=== PATIENT | male | born 1980 | race Caucasian/White ===

== ENCOUNTER 2016-12-21 00:31 | Emergency (ER) | payer OTHER ==
--- NOTE | 2016-12-21 01:51 | ED NURSING NOTES ---
Clinical Report - Nurses [address] [facility] [place] [address] 12/21/2016 0:33 Patient: STEVE KAPLAN TRIAGE Triage time 00:37. Acuity: LEVEL 2. Chief Complaint: CHEST PAIN and LEFT ARM PAIN (AND NUMBNESS). --00:44 Sharlene Kidd R.N. 00:37 12/21/16. BP: 185/107 taken on the left arm, while lying. HR: 75 (regular and normal rate). RR: 18 (regular and unlabored). O2 saturation: 99% on room air. Temp: 97.4 F. Pain level now: 010. --00:44 Sharlene Kidd R.N. Weight: 90.7 kg stated. Height/Length: 66 inches Per Patient. BMI: 32.3. --00:44 Sharlene Kidd R.N. Medications Atenolol Oral (Tablet 50 mg) 1 tablet, daily. --00:40 Sharlene Kidd R.N. Allergies No Known Drug Allergy. --00:39 Sharlene Kidd R.N. History Arrived by private vehicle. Historian: patient. Accompanied by family. Patient has a primary care physician. Primary physician (Dennis in [place]). This started today. Onset was abrupt. Symptoms are intermittent (at about 1500). He has had nausea. PAST MEDICAL HX: Hypertension. Immunizations: up-to-date. SOCIAL HX: Never smoker. Occasional alcohol use. Last drink was 2 weeks ago. No drug use. SELF HARM ASSESSMENT: A self harm assessment was performed. The patient answered "no" to the question "Have you recently felt down, depressed, or hopeless?", "Have you noticed less interest or pleasure in doing things?", "Do you have thoughts of harming or killing yourself?", "Are you here because you tried to hurt yourself?", "Have you ever tried to hurt yourself before today?", "Have you recently had thoughts about harming or killing others?" and "Do you have any dangerous items in your possession?". --00:44 Sharlene Kidd R.N. PROBLEMS: Hypertension. --00:40 Sharlene Kidd R.N. ADDITIONAL SURGERIES: no known surgeries. Interventions ID band on patient. --00:44 Sharlene Kidd R.N. PHYSICAL ASSESSMENT Ambulatory to room. GENERAL / NEURO / PSYCH: Alert. Oriented X 4. Appears anxious. HEENT: Mucous membranes are pink. RESPIRATORY: Respirations not labored. Chest nontender. Breath sounds within normal limits. CVS: Normal sinus rhythm noted. Heart sounds within normal limits. Pulses within normal limits. Capillary refill less than 2 seconds. GI / : Abdomen soft and nontender. EXTREMITIES: No lower extremity edema. SKIN: Skin is warm and dry. Normal skin turgor. Skin is non-tender. --00:46 Sharlene Kidd R.N. NURSING PROGRESS NOTES air sampling and monitoring, pulse oximeter and NIBP monitor placed on patient; bus driver/monitor- Lead II. Patient gowned. Reassurance given to the patient and patient's family. Two patient identifiers checked. Call light placed in reach of patient. Side rails up x 1. Bed placed in lowest position. Brakes of bed on. --00:47 Sharlene Kidd R.N. Patient ready for evaluation- chart flagged. --00:47 Sharlene Kidd R.N. 00:43. EKG was performed by a tech. --00:49 Lucretia Malik ER Tech1 00:45 12/21/2016 Site #1 started via IV in the right antecubital space with an 20g angiocath, with aseptic technique and good blood return; one attempt. Blood drawn: rainbow set. Labeled in the presence of the patient and sent to the lab. Saline lock flushed with 10 mL saline. --00:50 Sarah Rdoriguez 01:15 12/21/16. BP: 142/98 taken on the left arm, while lying. HR: 67 (regular and normal rate). RR: 18 (regular and unlabored). O2 saturation: 98% on room air. Temp: deferred. Pain level now: 08/27. --01:16 Sharlene Kidd R.N. DISPOSITION / DISCHARGE 02:03 12/21/2016 Site #1 removed upon discharge. Catheter intact. Manual pressure and bandage applied. --02:08 Sharlene Kidd R.N. Condition at departure: improved. No learning barriers present. Discharge instructions provided and reviewed with the patient and spouse. Reviewed medication(s) side effects, precautions, dosing and course information. Prescription(s) given to the patient. Activity restrictions (rest) reviewed. Work note given. Patient and spouse verbalized understanding. Written instructions provided in Persian. The patient was discharged home and accompanied by spouse. He left the Emergency Department ambulatory and via private vehicle. Spouse driving. --02:08 Sharlene Kidd R.N. 02:06 12/21/16. BP: 135/88 taken on the left arm, while lying. HR: 63 (regular and normal rate). RR: 18 (regular and unlabored). O2 saturation: 98% on room air. Temp: deferred. Pain level now: 0/10. --02:08 Sharlene Kidd R.N. Locked/Released at 12/21/2016 2:08 by Sharlene Kidd R.N.
--- NOTE | 2016-12-21 01:51 | ED CLINICAL REPORT ---
Clinical Report - Physicians/Mid Levels [facility] [address] [place] [address] 12/21/2016 0:33 Patient: STEVE KAPLAN Time Seen: 01:03 Dec 21 2016. Arrived- By private vehicle. Historian- patient. CPT: ER phys charges level 4 plus (#371914). EKG interpretation (#[id number]). HISTORY OF PRESENT ILLNESS Chief Complaint: CHEST PAIN. It is described as numbness and it is described as located in the left chest area and left shoulder and arm. Modifying factors. Not worsened by anything. Not relieved by anything. This started yesterday noon and is now gone. Onset during while driving. No nausea, vomiting or diaphoresis. (Numbness around mouth and fingertips. Now better since resting in ER.). He has had difficulty breathing. Similar symptoms previously: None. Recent medical care: Not recently seen/assessed. REVIEW OF SYSTEMS No fever, chills, cough, pedal edema or calf pain. Multiple stressors and not sleeping well. PAST HISTORY Hypertension. No history of coronary artery disease, heart disease, hyperlipidemia or diabetes mellitus. Additional Surgeries: no known surgeries. Medications: Atenolol Oral (Tablet 50 mg) 1 tablet, daily. Allergies: No Known Drug Allergy. SOCIAL HISTORY Never smoker. Occasional alcohol use. No drug use. FAMILY HISTORY History of heart disease in grandparent. No family history of premature onset heart disease. ADDITIONAL NOTES The nursing notes have been reviewed. PHYSICAL EXAM Vital Signs: 12/21/2016 00:37 BP: 185/107. HR: 75. RR: 18. O2 saturation: 99%. Temp: 97.4 F. Pain level now: 0/10. Appearance: Alert. Anxious. Patient in moderate distress. Eyes: Pupils equal, round and reactive to light. Eyes normal inspection. ENT: Ears normal. Nose normal. Pharynx normal. Neck: Normal inspection. Neck supple. CVS: Normal heart rate and rhythm. Heart sounds normal. Pulses normal. No cardiac murmur. Respiratory: No respiratory distress. Breath sounds normal. Chest nontender. Abdomen: Soft and nontender. Back: Normal external inspection. Skin: Skin warm. Normal skin color. No rash. Extremities: Extremities exhibit normal ROM. No lower extremity edema. Neuro: Oriented X 3. No motor deficit. No sensory deficit. Reflexes normal. LABS, X-RAYS, AND EKG EKG: Normal EKG. Chest X-ray: Normal Chest X-Ray. Laboratory Tests: CBC w Diff: (CEDRICK: 12/21/2016 00:35) ( [facility] 12/21/2016 00:52) Final results Test Result Flag Units (Reference) WHITE BLOOD COUNT 11.8 H K/uL (4.5-11.5) RED BLOOD COUNT 4.96 M/uL (4.50-5.90) HEMOGLOBIN 15.0 gm/dL (13.5-17.5) HEMATOCRIT 43.4 % (41.0-53.0) MEAN CELL VOLUME 87 fL (80-100) MEAN CORPUSCULAR HGB 30 pg (26-34) MEAN CORPUSCULAR HGB CONC 35 g/dL (31-37) RED CELL DISTRIBUTION WIDTH 12.9 % (11.6-14.8) PLATELET COUNT 244 K/uL (150-400) NEUTROPHIL % 43.9 L % (50-75) LYMPH % 46.0 H % (25-40) MONO % 7.9 % (3-14) EOSINOPHIL % 1.6 % (0-4) BASOPHIL % 0.6 % (0-2) TSH: (CEDRICK: 12/21/2016 00:35) ( [facility] 12/21/2016 01:41) Final results Test Result Flag Units (Reference) THYROID STIMULATING HORMONE 6.029 H uIU/mL (0.34-3.74) CHEM 13 PANEL: (CEDRICK: 12/21/2016 00:35) ( [facility] 12/21/2016 01:38) Final results Test Result Flag Units (Reference) GLUCOSE 125 H mg/dL (70-110) BUN 16 mg/dL (7-18) CREATININE 1.0 mg/dL (0.6-1.3) Estimated GFR >60 mL/min Estimated GFR- >60 mL/min Note: Persistent reduction over 3 months in eGFR<60 mL/min/1.73 m2 defines CKD. Patients with eGFR values>=60 mL/min/1.73 m2 may also have CKD if evidence ofpersistent proteinuria. Additional information may be foundat www.kidney.org. SODIUM 143 mmol/L (136-145) POTASSIUM 3.4 L mmol/L (3.5-5.1) CHLORIDE 104 mmol/L (98-107) CARBON DIOXIDE 28 mmol/L (21-32) CALCIUM 8.5 mg/dL (8.5-10.1) TOTAL PROTEIN 7.8 g/dL (6.4-8.2) ALBUMIN 4.1 g/dL (3.3-5.0) BILIRUBIN, TOTAL 0.4 mg/dL (0.0-1.0) ALKALINE PHOSPHATASE 69 U/L (46-116) AST (SGOT) 18 U/L (15-37) ALT (SGPT) 48 U/L (12-78) CPK 134 U/L (24-260) MAGNESIUM 2.2 mg/dL (1.8-2.4) TROPONIN I <0.05 L ng/mL (0.00-1.5) TROPONIN REFERENCE RANGE:<0.1 NEGATIVE0.1-1.5 INDETERMINANT>1.5 POSITIVE . PROGRESS AND PROCEDURES Course of Care: Pt has symptoms most consistent with panic attacks and hyperventilation. Patient/family counseled. Disposition: Discharged. Condition: stable. CLINICAL IMPRESSION Anxiety reaction with hyperventilation. INSTRUCTIONS No strenuous activity. Rest. Warnings: Further evaluation is necessary. GENERAL WARNINGS: Return or contact your physician immediately if your condition worsens or changes unexpectedly, if not improving as expected, or if other problems arise. Your Current Medications: CONTINUE TAKING THE FOLLOWING MEDICATIONS: Atenolol Oral : Tablet 50 mg, 1 tablet daily. Prescription Medications: Alprazolam 0.25 mg: take 1-2 orally every 4 hours as needed for anxiety. Dispense fifteen (15). No refill. Follow-up: Follow up with your doctor in five days. Call for an appointment. Understanding of the discharge instructions verbalized by patient. (Electronically signed by Julian Munoz MD 12/22/2016 0:09)
--- NOTE | 2016-12-21 01:51 | ED ORDER SUMMARY ---
..... Patient: STEVE KAPLAN OrderSheet [facility] VisitID: [id number] [address] [place] [address] 36y, M Registration Date/Time: 12/21/2016 ORDER SHEET Weight: 90.7 kg (stated) Allergies: No Known Drug Allergy GENERAL ORDERS: Hand Cloth Folder (Continuous) (CP) (00:45 12/21/2016 EBonham per protocol) (0:46 AMcQuoid ER Tech1) Cardiac Panel Stat (00:12/21/2016 EBonham per protocol) (Ack 0:46 AMcQuoid ER Tech1) (0:47 AMcQuoid ER Tech1) UA-Culture if indicated Urgent (00:12/21/2016 EBonham per protocol) (Ack 0:46 AMcQuoid ER Tech1) EKG - ER Stat (00:12/21/2016 EBonham per protocol) (0:46 AMcQuoid ER Tech1) Chest 2V Urgent (01:12/21/2016 Gerald MON) (1:16 CBoma R.N.) Urine Drug Screen Urgent (01:12/21/2016 Gerald MON) (Ack 1:22 AMcQuoid ER Tech1) TSH Urgent (01:12/21/2016 Gerald MON) (1:19 AMcQuoid ER Tech1) (1:20 CBoma R.N.) MEDICATION ORDERS: IV FLUIDS: IV Saline Lock (:12/21/2016 EBonham per protocol) (0:50 HSoule) ORDER SHEET NOTES: [Electronically signed by Sharlene Kidd R.N. (02:12/21/2016)] [Electronically signed by Julian Munoz MD (00:09 12/22/2016)] [Electronically locked/signed by Sharlene Kidd R.N. (02:12/21/2016)]
--- NOTE | 2016-12-21 01:51 | ED ORDER SUMMARY ---
..... Patient: STEVE KAPLAN OrderSheet [facility] VisitID: [id number] [address] [place] [address] 36y, M Registration Date/Time: 12/21/2016 ORDER SHEET Weight: 90.7 kg (stated) Allergies: No Known Drug Allergy GENERAL ORDERS: Education Program Coordinator (Continuous) (CP) (00:45 12/21/2016 EBonham per protocol) (0:46 AMcQuoid ER Tech1) Cardiac Panel Stat (00:12/21/2016 EBonham per protocol) (Ack 0:46 AMcQuoid ER Tech1) (0:47 AMcQuoid ER Tech1) UA-Culture if indicated Urgent (00:12/21/2016 EBonham per protocol) (Ack 0:46 AMcQuoid ER Tech1) EKG - ER Stat (00:12/21/2016 EBonham per protocol) (0:46 AMcQuoid ER Tech1) Chest 2V Urgent (01:12/21/2016 Gerald MON) (1:16 CBoma R.N.) Urine Drug Screen Urgent (01:12/21/2016 Gerald MON) (Ack 1:22 AMcQuoid ER Tech1) TSH Urgent (01:12/21/2016 Gerald MON) (1:19 AMcQuoid ER Tech1) (1:20 CBoma R.N.) MEDICATION ORDERS: IV FLUIDS: IV Saline Lock (:12/21/2016 EBonham per protocol) (0:50 HSoule) ORDER SHEET NOTES: [Electronically signed by Sharlene Kidd R.N. (02:12/21/2016)] [Electronically signed by Julian Munoz MD (00:09 12/22/2016)] [Electronically locked/signed by Sharlene Kidd R.N. (02:12/21/2016)]
--- NOTE | 2016-12-21 01:51 | ED NURSING NOTES ---
Clinical Report - Nurses [address] [address] [place] [address] 12/21/2016 0:33 Patient: STEVE KAPLAN TRIAGE Triage time 00:37. Acuity: LEVEL 2. Chief Complaint: CHEST PAIN and LEFT ARM PAIN (AND NUMBNESS). --00:44 Sharlene Kidd R.N. 00:37 12/21/16. BP: 185/107 taken on the left arm, while lying. HR: 75 (regular and normal rate). RR: 18 (regular and unlabored). O2 saturation: 99% on room air. Temp: 97.4 F. Pain level now: 010. --00:44 Sharlene Kidd R.N. Weight: 90.7 kg stated. Height/Length: 66 inches Per Patient. BMI: 32.3. --00:44 Sharlene Kidd R.N. Medications Atenolol Oral (Tablet 50 mg) 1 tablet, daily. --00:40 Sharlene Kidd R.N. Allergies No Known Drug Allergy. --00:39 Sharlene Kidd R.N. History Arrived by private vehicle. Historian: patient. Accompanied by family. Patient has a primary care physician. Primary physician (Dennis in [place]). This started today. Onset was abrupt. Symptoms are intermittent (at about 1500). He has had nausea. PAST MEDICAL HX: Hypertension. Immunizations: up-to-date. SOCIAL HX: Never smoker. Occasional alcohol use. Last drink was 2 weeks ago. No drug use. SELF HARM ASSESSMENT: A self harm assessment was performed. The patient answered "no" to the question "Have you recently felt down, depressed, or hopeless?", "Have you noticed less interest or pleasure in doing things?", "Do you have thoughts of harming or killing yourself?", "Are you here because you tried to hurt yourself?", "Have you ever tried to hurt yourself before today?", "Have you recently had thoughts about harming or killing others?" and "Do you have any dangerous items in your possession?". --00:44 Sharlene Kidd R.N. PROBLEMS: Hypertension. --00:40 Sharlene Kidd R.N. ADDITIONAL SURGERIES: no known surgeries. Interventions ID band on patient. --00:44 Sharlene Kidd R.N. PHYSICAL ASSESSMENT Ambulatory to room. GENERAL / NEURO / PSYCH: Alert. Oriented X 4. Appears anxious. HEENT: Mucous membranes are pink. RESPIRATORY: Respirations not labored. Chest nontender. Breath sounds within normal limits. CVS: Normal sinus rhythm noted. Heart sounds within normal limits. Pulses within normal limits. Capillary refill less than 2 seconds. GI / : Abdomen soft and nontender. EXTREMITIES: No lower extremity edema. SKIN: Skin is warm and dry. Normal skin turgor. Skin is non-tender. --00:46 Sharlene Kidd R.N. NURSING PROGRESS NOTES front desk monitor, pulse oximeter and NIBP monitor placed on patient; alarm security or surveillance monitor- Lead II. Patient gowned. Reassurance given to the patient and patient's family. Two patient identifiers checked. Call light placed in reach of patient. Side rails up x 1. Bed placed in lowest position. Brakes of bed on. --00:47 Sharlene Kidd R.N. Patient ready for evaluation- chart flagged. --00:47 Sharlene Kidd R.N. 00:43. EKG was performed by a tech. --00:49 Lucretia Malik ER Tech1 00:45 12/21/2016 Site #1 started via IV in the right antecubital space with an 20g angiocath, with aseptic technique and good blood return; one attempt. Blood drawn: rainbow set. Labeled in the presence of the patient and sent to the lab. Saline lock flushed with 10 mL saline. --00:50 Sarah Rodriguez 01:15 12/21/16. BP: 142/98 taken on the left arm, while lying. HR: 67 (regular and normal rate). RR: 18 (regular and unlabored). O2 saturation: 98% on room air. Temp: deferred. Pain level now: 08/27. --01:16 Sharlene Kidd R.N. DISPOSITION / DISCHARGE 02:03 12/21/2016 Site #1 removed upon discharge. Catheter intact. Manual pressure and bandage applied. --02:08 Sharlene Kidd R.N. Condition at departure: improved. No learning barriers present. Discharge instructions provided and reviewed with the patient and spouse. Reviewed medication(s) side effects, precautions, dosing and course information. Prescription(s) given to the patient. Activity restrictions (rest) reviewed. Work note given. Patient and spouse verbalized understanding. Written instructions provided in Irish. The patient was discharged home and accompanied by spouse. He left the Emergency Department ambulatory and via private vehicle. Spouse driving. --02:08 Sharlene Kidd R.N. 02:06 12/21/16. BP: 135/88 taken on the left arm, while lying. HR: 63 (regular and normal rate). RR: 18 (regular and unlabored). O2 saturation: 98% on room air. Temp: deferred. Pain level now: 0/10. --02:08 Sharlene Kidd R.N. Locked/Released at 12/21/2016 2:08 by Sharlene Kidd R.N.
--- NOTE | 2016-12-21 01:51 | ED CLINICAL REPORT ---
Clinical Report - Physicians/Mid Levels [facility] [address] [place] [address] 12/21/2016 0:33 Patient: STEVE KAPLAN Time Seen: 01:03 Dec 21 2016. Arrived- By private vehicle. Historian- patient. CPT: ER phys charges level 4 plus (#[id number]). EKG interpretation (#[id number]). HISTORY OF PRESENT ILLNESS Chief Complaint: CHEST PAIN. It is described as numbness and it is described as located in the left chest area and left shoulder and arm. Modifying factors. Not worsened by anything. Not relieved by anything. This started yesterday noon and is now gone. Onset during while driving. No nausea, vomiting or diaphoresis. (Numbness around mouth and fingertips. Now better since resting in ER.). He has had difficulty breathing. Similar symptoms previously: None. Recent medical care: Not recently seen/assessed. REVIEW OF SYSTEMS No fever, chills, cough, pedal edema or calf pain. Multiple stressors and not sleeping well. PAST HISTORY Hypertension. No history of coronary artery disease, heart disease, hyperlipidemia or diabetes mellitus. Additional Surgeries: no known surgeries. Medications: Atenolol Oral (Tablet 50 mg) 1 tablet, daily. Allergies: No Known Drug Allergy. SOCIAL HISTORY Never smoker. Occasional alcohol use. No drug use. FAMILY HISTORY History of heart disease in grandparent. No family history of premature onset heart disease. ADDITIONAL NOTES The nursing notes have been reviewed. PHYSICAL EXAM Vital Signs: 12/21/2016 00:37 BP: 185/107. HR: 75. RR: 18. O2 saturation: 99%. Temp: 97.4 F. Pain level now: 0/10. Appearance: Alert. Anxious. Patient in moderate distress. Eyes: Pupils equal, round and reactive to light. Eyes normal inspection. ENT: Ears normal. Nose normal. Pharynx normal. Neck: Normal inspection. Neck supple. CVS: Normal heart rate and rhythm. Heart sounds normal. Pulses normal. No cardiac murmur. Respiratory: No respiratory distress. Breath sounds normal. Chest nontender. Abdomen: Soft and nontender. Back: Normal external inspection. Skin: Skin warm. Normal skin color. No rash. Extremities: Extremities exhibit normal ROM. No lower extremity edema. Neuro: Oriented X 3. No motor deficit. No sensory deficit. Reflexes normal. LABS, X-RAYS, AND EKG EKG: Normal EKG. Chest X-ray: Normal Chest X-Ray. Laboratory Tests: CBC w Diff: (CEDRICK: 12/21/2016 00:35) ( [facility] 12/21/2016 00:52) Final results Test Result Flag Units (Reference) WHITE BLOOD COUNT 11.8 H K/uL (4.5-11.5) RED BLOOD COUNT 4.96 M/uL (4.50-5.90) HEMOGLOBIN 15.0 gm/dL (13.5-17.5) HEMATOCRIT 43.4 % (41.0-53.0) MEAN CELL VOLUME 87 fL (80-100) MEAN CORPUSCULAR HGB 30 pg (26-34) MEAN CORPUSCULAR HGB CONC 35 g/dL (31-37) RED CELL DISTRIBUTION WIDTH 12.9 % (11.6-14.8) PLATELET COUNT 244 K/uL (150-400) NEUTROPHIL % 43.9 L % (50-75) LYMPH % 46.0 H % (25-40) MONO % 7.9 % (3-14) EOSINOPHIL % 1.6 % (0-4) BASOPHIL % 0.6 % (0-2) TSH: (CEDRICK: 12/21/2016 00:35) ( [facility] 12/21/2016 01:41) Final results Test Result Flag Units (Reference) THYROID STIMULATING HORMONE 6.029 H uIU/mL (0.34-3.74) CHEM 13 PANEL: (CEDRICK: 12/21/2016 00:35) ( [facility] 12/21/2016 01:38) Final results Test Result Flag Units (Reference) GLUCOSE 125 H mg/dL (70-110) BUN 16 mg/dL (7-18) CREATININE 1.0 mg/dL (0.6-1.3) Estimated GFR >60 mL/min Estimated GFR- >60 mL/min Note: Persistent reduction over 3 months in eGFR<60 mL/min/1.73 m2 defines CKD. Patients with eGFR values>=60 mL/min/1.73 m2 may also have CKD if evidence ofpersistent proteinuria. Additional information may be foundat www.kidney.org. SODIUM 143 mmol/L (136-145) POTASSIUM 3.4 L mmol/L (3.5-5.1) CHLORIDE 104 mmol/L (98-107) CARBON DIOXIDE 28 mmol/L (21-32) CALCIUM 8.5 mg/dL (8.5-10.1) TOTAL PROTEIN 7.8 g/dL (6.4-8.2) ALBUMIN 4.1 g/dL (3.3-5.0) BILIRUBIN, TOTAL 0.4 mg/dL (0.0-1.0) ALKALINE PHOSPHATASE 69 U/L (46-116) AST (SGOT) 18 U/L (15-37) ALT (SGPT) 48 U/L (12-78) CPK 134 U/L (24-260) MAGNESIUM 2.2 mg/dL (1.8-2.4) TROPONIN I <0.05 L ng/mL (0.00-1.5) TROPONIN REFERENCE RANGE:<0.1 NEGATIVE0.1-1.5 INDETERMINANT>1.5 POSITIVE . PROGRESS AND PROCEDURES Course of Care: Pt has symptoms most consistent with panic attacks and hyperventilation. Patient/family counseled. Disposition: Discharged. Condition: stable. CLINICAL IMPRESSION Anxiety reaction with hyperventilation. INSTRUCTIONS No strenuous activity. Rest. Warnings: Further evaluation is necessary. GENERAL WARNINGS: Return or contact your physician immediately if your condition worsens or changes unexpectedly, if not improving as expected, or if other problems arise. Your Current Medications: CONTINUE TAKING THE FOLLOWING MEDICATIONS: Atenolol Oral : Tablet 50 mg, 1 tablet daily. Prescription Medications: Alprazolam 0.25 mg: take 1-2 orally every 4 hours as needed for anxiety. Dispense fifteen (15). No refill. Follow-up: Follow up with your doctor in five days. Call for an appointment. Understanding of the discharge instructions verbalized by patient. (Electronically signed by Julian Munoz MD 12/22/2016 0:09)
--- NOTE | 2016-12-21 06:42 | DIAGNOSTIC IMAGING REPORT ---
PROCEDURE: XR CHEST 2 VIEW INDICATION: CHEST PAIN TECHNIQUE: PA and lateral view. COMPARISON: None. FINDINGS: Lungs are clear. Cardiovascular structures are normal. Bony thorax is unremarkable. IMPRESSION: 1. Negative chest.
--- NOTE | 2016-12-22 00:10 | ED MAR SUMMARY ---
..... Medication Administration Record [facility] [address] [place] [place], [place] [id number] Patient: JOVANY CRUZJULIO STEVE Visit ID: [id number] 36y, M Weight: 90.7 kg Height/Length: 66 in BMI: 32.3 ALLERGIES: No Known Drug Allergy
--- NOTE | 2016-12-22 00:10 | ED MAR SUMMARY ---
..... Medication Administration Record [facility] [address] [place], [place] [id number] Patient: JOVANY CRUZJULIO STEVE Visit ID: [id number] 36y, M Weight: 90.7 kg Height/Length: 66 in BMI: 32.3 ALLERGIES: No Known Drug Allergy
--- NOTE | 2016-12-22 00:10 | ED MED RECONCILIATION SUMMARY ---
Patient: JOVANY CRUZSTEVE KIM Medication Reconciliation Report [facility] VisitID: [id number] [address] [place] [address] 36y, M Registration Date/Time: 12/21/2016 Weight: 90.7 kg Height/Length: 66 in. BMI: 32.3 ALLERGIES: No Known Drug Allergy The patient's Home Medications are listed below: CONTINUE TAKING THE FOLLOWING MEDICATIONS: Atenolol Oral (50 mg) 1 tablet, daily The source(s) of the original Home Medication information: Not obtained. The following Medications were given to the patient in the Emergency Department: None. The following Medications were prescribed to the patient: Alprazolam 0.25 mg: take 1-2 orally every 4 hours as needed for anxiety. Dispense fifteen (15). No refill. -- Julian Munoz MD
--- NOTE | 2016-12-22 00:10 | ED DISCHARGE INSTRUCTIONS ---
Patient: STEVE KAPLAN General Instructions [facility] VisitID: [id number] [address] [place] [address] 36y, M Registration Date/Time: 12/21/2016 Anxiety reaction with hyperventilation. INSTRUCTIONS No strenuous activity. Rest. Warnings: Further evaluation is necessary. GENERAL WARNINGS: Return or contact your physician immediately if your condition worsens or changes unexpectedly, if not improving as expected, or if other problems arise. Your Current Medications: CONTINUE TAKING THE FOLLOWING MEDICATIONS: Atenolol Oral : Tablet 50 mg, 1 tablet daily. Prescription Medications: Alprazolam 0.25 mg: take 1-2 orally every 4 hours as needed for anxiety. Dispense fifteen (15). No refill. Follow-up: Follow up with your doctor in five days. Call for an appointment. Understanding of the discharge instructions verbalized by patient. ADDITIONAL INFORMATION Stress Reaction Anxiety is the feeling we all get when we think something bad might happen. It is a normal response to stress and usually causes only a mild reaction. When anxiety becomes more severe, emotions may interfere with daily life. In some cases, you may not even be aware of what it is youre anxious about! During an anxiety reaction, you may feel like you are helpless, nervous, depressed or irritable. Your body may show signs of anxiety in many ways. You may experience dry mouth, shakiness, dizziness, weakness, trouble breathing, chest pressure, headache, nausea, diarrhea, tiredness, inability to sleep or sexual problems. Home Care: 1) Try to locate the sources of stress in your life. They may not be obvious! These may include: -- Daily hassles of life which pile up (traffic jams, missed appointments, car troubles, etc.) -- Major life changes, both good (new baby, job promotion) and bad (loss of job, loss of loved one) -- Overload: feeling that you have too many responsibilities and can't take care of all of them at once -- Feeling helpless, feeling that your problems are beyond what youre able to solve 2) Notice how your body reacts to stress. Learn to listen to your body signals. This will help you take action before the stress becomes severe. 3) When you can, do something about the source of your stress. (Avoid hassles, limit the amount of change that happens in your life at one time and take a break when you feel overloaded). 4) Unfortunately, many stressful situations cannot be avoided. It is necessary to learn HOW TO MANAGE STRESS better. There are many proven methods that will reduce your anxiety. These include simple things like exercise, good nutrition and adequate rest. Also, there are certain techniques that are helpful: relaxation and breathing exercises, visualization, biofeedback and meditation. For more information about this, consult your doctor or go to a local bookstore and review the many books and tapes available on this subject. Follow Up If you feel that your anxiety is not responding to self-help measures, contact your doctor or make an appointment with a counselor. Get Prompt Medical Attention if any of the following occur: -- Your symptoms get worse -- Chest pain or trouble breathing -- Severe headache not relieved by rest and mild pain reliever -- Rapid or irregular heartbeat, fainting Panic Attack A panic attack is an extreme fear reaction that comes on for no apparent reason. Symptoms may include pounding or racing heartbeat, shortness of breath, dizziness, weakness and sweating. There is usually a fear that something terrible will happen or that you may . The attack may last a few minutes up to a few hours. Between attacks things will seem quite normal. This condition has a psychological cause and can be treated with the help of a therapist or psychiatrist. Medication is often used and can be very helpful for this problem. Home Care: Try to identify the sources of stress in your life. It may not be obvious! These may include: Daily hassles of life which pile up (traffic jams, missed appointments, car troubles, etc.). Major life changes, both good (new baby, job promotion) and bad (loss of job, loss of loved one). Overload: feeling that you have too many responsibilities and can't take care of everything at once. Helplessness: feeling like your problems are too much for you to handle. Notice how your body reacts to stress. Learn to listen to your body signals so that you can take action before the stress becomes severe. When possible, AVOID or REDUCE THE CAUSE OF STRESS. Avoid hassles, limit the amount of change that is happening in your life at one time or take a break when you feel overloaded. Unfortunately, many stressful situations cannot be avoided. Therefore, it is necessary to LEARN HOW TO MANAGE STRESS better. There are many proven methods that work and will reduce your anxiety. These include simple things like exercise, good nutrition and adequate rest. Also, there are certain techniques that are helpful: relaxation and breathing exercises, visualization, biofeedback, meditation or simply taking some time-out to clear your mind. For more information about this, consult your doctor or go to a local bookstore and review the many books and tapes available on this subject. Follow Up with your doctor or a therapist as advised. Get Prompt Medical Attention if any of the following occur: Worsening of your symptoms to the point of feeling [id number] A change in the type of pain: if it feels different, becomes more severe, lasts longer, or begins to spread into your shoulder, arm, neck, jaw or back Shortness of breath or increased pain with breathing Increasing feeling of weakness or dizziness Fainting Cough with dark colored sputum (phlegm) or blood Fever of 100.4F (38C) or higher, or as directed by your healthcare provider Swelling, pain or redness in one leg Hyperventilation Syndrome Hyperventilation Syndrome is a condition in which you lose control of your breathing. You may find yourself breathing too fast and/or too deep. This can be triggered by pain, anxiety and emotional stress. If hyperventilation continues for more than a few minutes, it can lead to a number of frightening symptoms, such as: Numbness and tingling of the hands, feet and face Clenching of the fingers or toes Dizziness Feeling like you cannot get enough air Chest pains Fainting or feeling like you are going to faint Once these symptoms begin, it is often hard to stop them because they lead to a cycle of more anxiety and more hyperventilation. It is important to understand that this is not a life-threatening condition and it will pass once you are able to relax. Relaxation and stress management methods can be learned and practiced in advance. These can help in the event of a future attack. Home Care: 1) Rest today until feeling back to normal. 2) If symptoms return: Sit or lie down. Remember that what is happening to you is temporary and will pass. Use the relaxation methods you have learned. It is no longer recommended to breathe into a paper bag. Follow Up with your doctor or as directed by our staff if symptoms recur. Get Prompt Medical Attention if any of the following occur: Increasing shortness of breath Fever of 100.0 F (38 C) or higher, or as directed by your healthcare provider Coughing up blood Chest pain that is made worse with each breath Redness, pain or swelling of the leg Ringing in your ears, Severe headache Weakness or fainting Alprazolam Oral tablet What is this medicine? ALPRAZOLAM (al PRAY miryam llamas) is a benzodiazepine. It is used to treat anxiety and panic attacks. How should I use this medicine? Take this medicine by mouth with a glass of water. Follow the directions on the prescription label. Take your medicine at regular intervals. Do not take it more often than directed. If you have been taking this medicine regularly for some time, do not suddenly stop taking it. You must gradually reduce the dose or you may get severe side effects. Ask your doctor or health managed care coordinator for advice. Even after you stop taking this medicine it can still affect your body for several days. Talk to your certified income tax preparer regarding the use of this medicine in children. Special care may be needed. What side effects may I notice from receiving this medicine? Side effects that you should report to your doctor or health managed care coordinator as soon as possible: allergic reactions like skin rash, itching or hives, swelling of the face, lips, or tongue confusion, forgetfulness depression difficulty sleeping difficulty speaking feeling faint or lightheaded, falls mood changes, excitability or aggressive behavior muscle cramps trouble passing urine or change in the amount of urine unusually weak or tired Side effects that usually do not require medical attention (report to your doctor or health managed care coordinator if they continue or are bothersome): change in sex drive or performance changes in appetite What may interact with this medicine? Do not take this medicine with any of the following medications: certain medicines for HIV infection or AIDS ketoconazole itraconazole This medicine may also interact with the following medications: control pills certain macrolide antibiotics like clarithromycin, erythromycin, troleandomycin cimetidine cyclosporine ergotamine grapefruit juice herbal or dietary supplements like kava kava, melatonin, dehydroepiandrosterone, DHEA, Lisa's Wort or valerian imatinib, [id number] isoniazid levodopa medicines for depression, anxiety, or psychotic disturbances prescription pain medicines rifampin, rifapentine, or rifabutin some medicines for blood pressure or heart problems some medicines for seizures like carbamazepine, oxcarbazepine, phenobarbital, phenytoin, primidone What if I miss a dose? If you miss a dose, take it as soon as you can. If it is almost time for your next dose, take only that dose. Do not take double or extra doses. Where should I keep my medicine? Keep out of the reach of children. This medicine can be abused. Keep your medicine in a safe place to protect it from theft. Do not share this medicine with anyone. Selling or giving away this medicine is dangerous and against the law. Store at room temperature between 20 and 25 degrees C (68 and 77 degrees F). Throw away any unused medicine after the expiration date. What should I tell my health care provider before I take this medicine? They need to know if you have any of these conditions: an alcohol or drug abuse problem bipolar disorder, depression, psychosis or other mental health conditions glaucoma kidney or liver disease lung or breathing disease myasthenia gravis Parkinson's disease porphyria seizures or a history of seizures suicidal thoughts an unusual or allergic reaction to alprazolam, other benzodiazepines, foods, dyes, or preservatives or trying to get breast-feeding What should I watch for while using this medicine? Visit your doctor or health managed care coordinator for regular checks on your progress. Your body can become dependent on this medicine. Ask your doctor or health managed care coordinator if you still need to take it. You may get drowsy or dizzy. Do not drive, use machinery, or do anything that needs mental alertness until you know how this medicine affects you. To reduce the risk of dizzy and fainting spells, do not stand or sit up quickly, especially if you are an older patient. Alcohol may increase dizziness and drowsiness. Avoid alcoholic drinks. Do not treat yourself for coughs, colds or allergies without asking your doctor or health managed care coordinator for advice. Some ingredients can increase possible side effects. You have been given the following additional information: Anxiety Reaction Panic Attack Hyperventilation Syndrome Alprazolam Oral tablet No strenuous activity. Rest. (Electronically signed by Julian Munoz MD 12/22/2016 0:09)
--- NOTE | 2016-12-22 00:10 | ED MED RECONCILIATION SUMMARY ---
Patient: JOVANY CRUZSTEVE KIM Medication Reconciliation Report [facility] VisitID: [id number] [address] [place] [address] 36y, M Registration Date/Time: 12/21/2016 Weight: 90.7 kg Height/Length: 66 in. BMI: 32.3 ALLERGIES: No Known Drug Allergy The patient's Home Medications are listed below: CONTINUE TAKING THE FOLLOWING MEDICATIONS: Atenolol Oral (50 mg) 1 tablet, daily The source(s) of the original Home Medication information: Not obtained. The following Medications were given to the patient in the Emergency Department: None. The following Medications were prescribed to the patient: Alprazolam 0.25 mg: take 1-2 orally every 4 hours as needed for anxiety. Dispense fifteen (15). No refill. -- Julian Munoz MD
== END 2016-12-21 02:03 | disposition home or self-care (01) ==
LOC: ED SRH 00:31 → EDBD 00:34 → ED SRH 00:34
DX: F41.1 Generalized anxiety disorder (principal); R06.4 Hyperventilation; I10 Essential (primary) hypertension; Z79.899 Other long term (current) drug therapy
CPT/HCPCS: 90004; 90100; 90616; 92610; 92720; 92760; 92761; 92762; 92763; 92764; 92765; 92766; 92767; 93140; 95059

== ENCOUNTER 2017-01-02 18:42 | Emergency (ER) | payer OTHER ==
--- NOTE | 2017-01-02 20:41 | DIAGNOSTIC IMAGING REPORT ---
PROCEDURE: XR CHEST 1 VIEW INDICATION: CHEST PAIN TECHNIQUE: Portable AP view 06:55 p.m. COMPARISON: Chest x-ray 12/21/2016. FINDINGS: Lungs are clear. Heart and mediastinum are normal. Thorax is normal. No significant interval change. IMPRESSION: 1. Negative chest.
--- NOTE | 2017-01-02 22:14 | ED ORDER SUMMARY ---
..... Patient: STEVE KAPLAN OrderSheet [facility] VisitID: [id number] [address] [place] [address] 36y, M Registration Date/Time: 01/02/2017 ORDER SHEET Weight: 89.8 kg (stated) Allergies: No Known Drug Allergy GENERAL ORDERS: Patient Financial Coordinator (Continuous) (18:50 01/02/2017 JSimbeck R.N. per protocol) (Ack 18:52 IJurca ER Tech1) (19:13 DDavis R.N.) Pulse oximeter (18:50 01/02/2017 JSimbeck R.N. per protocol) (Ack 18:52 IJurca ER Tech1) (19:13 DDavis R.N.) EKG - ER Stat (18:50 01/02/2017 JSimbeck R.N. per protocol) (Ack 18:52 IJurca ER Tech1) (19:09 RKaruga) Chest 1V Urgent (18:59 01/02/2017 HBivens A.R.N.P.) (Ack 19:01 IJurca ER Tech1) (19:13 DDavis R.N.) CBC w Diff Urgent (18:59 01/02/2017 HBivens A.R.N.P.) (Ack 19:01 IJurca ER Tech1) (19:13 DDavis R.N.) CMP Urgent (18:59 01/02/2017 HBivens A.R.N.P.) (Ack 19:01 IJurca ER Tech1) (19:13 DDavis R.N.) Troponin-I Urgent (18:59 01/02/2017 HBivens A.R.N.P.) (Ack 19:01 IJurca ER Tech1) (19:13 DDavis R.N.) CPK Urgent (18:59 01/02/2017 HBivens A.R.N.P.) (Ack 19:01 IJurca ER Tech1) (19:13 DDavis R.N.) Troponin-I Urgent (20:24 01/02/2017 HBivens A.R.N.P.) (Ack 20:25 CHagerty ER Moving Consultant) (21:25 DDavis R.N.) CPK Urgent (20:24 01/02/2017 HBivens A.R.N.P.) (Ack 20:25 CHagerty ER Moving Consultant) (21:25 DDavis R.N.) MEDICATION ORDERS: Aspirin PO 325 mg (Do not crush or chew, NOW) (18:59 01/02/2017 HBivens A.R.N.P.) (19:23 DDavis R.N.) NitroGLYCERIN SL 0.4 mg (x3 PRN Chest Pain) (18:59 01/02/2017 HBivens A.R.N.P.) (19:23 DDavis R.N.) IV FLUIDS: IV Saline Lock (18:59 01/02/2017 HBivens A.R.N.P.) (19:17 DDavis R.N.) ORDER SHEET NOTES: [Electronically signed by Renita LamR.N.P. (22:42 01/02/2017)] [Electronically signed by Jay Briceño R.N. (01:36 01/03/2017)] [Electronically locked/signed by Jay Briceño R.N. (01:36 01/03/2017)]
--- NOTE | 2017-01-02 22:14 | ED NURSING NOTES ---
Clinical Report - Nurses [facility] [address] [place] [address] 01/02/2017 18:42 Patient: STEVE KAPLAN TRIAGE Triage time 18:49. Acuity: LEVEL 3. Chief Complaint: CHEST PAIN and DISCOMFORT and (SOB, onset yesterday. left substernal and left shoulder adn left jaw pain.). SEPSIS SCREEN: Sepsis Screen. Negative (no infection suspected/documented). ASTER COMA SCORE: [place] Coma Scale: 15- eyes open spontaneously (4); best verbal response- oriented x 4 (5); best motor response- obeys commands (6). --18:59 Elfego Jung R.N. 18:49 01/02/17. BP: 152/92 (regular adult cuff) taken on the left arm, while lying. HR: 84. RR: 20. O2 saturation: 100% on room air. Temp: 98 F (oral). --18:59 Elfego Jung R.N. Weight: 89.8 kg stated. Height/Length: 66 inches Per Patient. BMI: 32. --18:58 Elfego Jung R.N. Medications Xanax Oral (stopped). --18:59 Elfego Jung R.N. Atenolol Oral (Tablet 50 mg) 1 tablet, daily. --18:59 Elfego Jung R.N. HydrOXYzine HCl Oral (Tablet 25 mg) 1 - 2, daily, anxiety. --19:00 Elfego Jung R.N. The following entry was struck and corrected by Elfego Jung R.N., 19:00 (01/02/17) Reason for correction - other(correction). <<STRICKEN ENTRY-- Xanax Oral. --18:59 Elfego Jung R.N. --END STRIKE>>. Allergies No Known Drug Allergy. --01:35 Jay Briceño R.N. 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 SOCIAL HX: Never smoker. No alcohol use or drug use. ABUSE ASSESSMENT: No report of abuse. --18:59 Elfego Jung R.N. PROBLEMS: Anxiety Reaction. Hypertension. --18:49 Elfego Jung R.N. Interventions ID band on patient. To treatment room. --18:59 Elfego Jung R.N. PHYSICAL ASSESSMENT Ambulatory to room. GENERAL / NEURO / PSYCH: Alert. Oriented X 4. Appears in pain and anxious. RESPIRATORY: Respirations not labored. Breath sounds within normal limits. CVS: Normal sinus rhythm noted. Heart sounds within normal limits. Capillary refill less than 2 seconds. GI / : Abdomen soft and nontender. EXTREMITIES: No lower extremity edema. SKIN: Skin is warm and dry. --19:17 Jay Briceño R.N. CVS: ( chest pain, radiates to left jaw and left shoulder). --19:17 Jay Briceño R.N. ( Patient states "I'm better. I'm just waiting for my spiderman stickers."). --21:43 Jay Briceoñ R.N. NURSING PROGRESS NOTES EKG time: (19:07). EKG was performed by a tech and shown to the ED physician. --19:09 Violetta Candelaria 19:05 01/02/2017 Site #1 started via IV in the right antecubital space with an 20g angiocath, with aseptic technique and good blood return; one attempt. Blood drawn: rainbow set. Labeled in the presence of the patient and sent to the lab. Saline lock flushed with 10 mL saline. --19:15 Jay Briceño R.N. ( Report received from Elfego HICKEY). --19:15 Jay Briceño R.N. 19:05 01/02/17. BP: 156/92. HR: 77. RR: 10. O2 saturation: 100% on room air. Additional comments: NSR. --19:16 Jay Briceño R.N. 19:19 01/02/2017 Aspirin PO Tablets 325 mg given. Allergies verified and confirmed 5 rights. --19:23 Jay Briceño R.N. 19:21 01/02/2017 Nitroglycerin SL Tablets 0.4 mg given. Allergies verified and confirmed 5 rights. --19:23 Jay Briceño R.N. 19:30 01/02/2017 Nitroglycerin SL Tablets 0.4 mg given. Allergies verified and confirmed 5 rights. (given at 1930). --19:35 Jay Briceño R.N. ( Patient reports no change in chest pain after nitroglycerin). --19:36 Jay Briceño R.N. ( I called lab and Mone in lab stated that she draw the patient's 2100 blood tests.). --21:26 Jay Briceño R.N. DISPOSITION / DISCHARGE 22:20 01/02/2017 Site #1 removed upon discharge. Catheter intact. Bandaid applied. --22:20 Lila Weiss Departure time: 22:21. Condition at departure: improved. No learning barriers present. Discharge instructions provided and reviewed with the patient. Patient verbalized understanding. Written instructions provided in Kinyarwanda. No warning instructions, medication instructions, treatment instructions, referrals given to the patient or diet instructions. No activity restrictions, note given, follow up contact number given or stop smoking instructions. The patient was discharged by the nurse practitioner. He was discharged home and accompanied by spouse. He left the Emergency Department ambulatory and via private vehicle. Spouse driving. FALL RISK ASSESSMENT: Fall risk assessment completed. No fall risk identified. --22:21 Lila Weiss 22:19 01/02/17. BP: 133/86. HR: 73. RR: 16. O2 saturation: 98%. Temp: deferred. Pain level now: 0/10. --22:21 Lila Weiss Locked/Released at 01/03/2017 1:36 by Jay Briceño R.N.
--- NOTE | 2017-01-02 22:14 | ED NURSING NOTES ---
Clinical Report - Nurses [facility] [address] [place] [address] 01/02/2017 18:42 Patient: STEVE KAPLAN TRIAGE Triage time 18:49. Acuity: LEVEL 3. Chief Complaint: CHEST PAIN and DISCOMFORT and (SOB, onset yesterday. left substernal and left shoulder adn left jaw pain.). SEPSIS SCREEN: Sepsis Screen. Negative (no infection suspected/documented). ASTER COMA SCORE: [place] Coma Scale: 15- eyes open spontaneously (4); best verbal response- oriented x 4 (5); best motor response- obeys commands (6). --18:59 Elfego Jung R.N. 18:49 01/02/17. BP: 152/92 (regular adult cuff) taken on the left arm, while lying. HR: 84. RR: 20. O2 saturation: 100% on room air. Temp: 98 F (oral). --18:59 Elfego Jung R.N. Weight: 89.8 kg stated. Height/Length: 66 inches Per Patient. BMI: 32. --18:58 Elfego Jung R.N. Medications Xanax Oral (stopped). --18:59 Elfego Jung R.N. Atenolol Oral (Tablet 50 mg) 1 tablet, daily. --18:59 Elfego Jung R.N. HydrOXYzine HCl Oral (Tablet 25 mg) 1 - 2, daily, anxiety. --19:00 Elfego Jung R.N. The following entry was struck and corrected by Elfego Jung R.N., 19:00 (01/02/17) Reason for correction - other(correction). <<STRICKEN ENTRY-- Xanax Oral. --18:59 Elfego Jung R.N. --END STRIKE>>. Allergies No Known Drug Allergy. --01:35 Jay Briceño R.N. 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 SOCIAL HX: Never smoker. No alcohol use or drug use. ABUSE ASSESSMENT: No report of abuse. --18:59 Elfego Jung R.N. PROBLEMS: Anxiety Reaction. Hypertension. --18:49 Elfego Jung R.N. Interventions ID band on patient. To treatment room. --18:59 Elfego Jung R.N. PHYSICAL ASSESSMENT Ambulatory to room. GENERAL / NEURO / PSYCH: Alert. Oriented X 4. Appears in pain and anxious. RESPIRATORY: Respirations not labored. Breath sounds within normal limits. CVS: Normal sinus rhythm noted. Heart sounds within normal limits. Capillary refill less than 2 seconds. GI / : Abdomen soft and nontender. EXTREMITIES: No lower extremity edema. SKIN: Skin is warm and dry. --19:17 Jay Briceño R.N. CVS: ( chest pain, radiates to left jaw and left shoulder). --19:17 Jay Briceño R.N. ( Patient states "I'm better. I'm just waiting for my spiderman stickers."). --21:43 Jay Briceño R.N. NURSING PROGRESS NOTES EKG time: (19:07). EKG was performed by a tech and shown to the ED physician. --19:09 Violetta Candelaria 19:05 01/02/2017 Site #1 started via IV in the right antecubital space with an 20g angiocath, with aseptic technique and good blood return; one attempt. Blood drawn: rainbow set. Labeled in the presence of the patient and sent to the lab. Saline lock flushed with 10 mL saline. --19:15 Jay Briceño R.N. ( Report received from Elfego HICKEY). --19:15 Jay Briceño R.N. 19:05 01/02/17. BP: 156/92. HR: 77. RR: 10. O2 saturation: 100% on room air. Additional comments: NSR. --19:16 Jay Briceño R.N. 19:19 01/02/2017 Aspirin PO Tablets 325 mg given. Allergies verified and confirmed 5 rights. --19:23 Jay Briceño R.N. 19:21 01/02/2017 Nitroglycerin SL Tablets 0.4 mg given. Allergies verified and confirmed 5 rights. --19:23 Jay Briceño R.N. 19:30 01/02/2017 Nitroglycerin SL Tablets 0.4 mg given. Allergies verified and confirmed 5 rights. (given at 1930). --19:35 Jay Briceño R.N. ( Patient reports no change in chest pain after nitroglycerin). --19:36 Jay Briceño R.N. ( I called lab and Mone in lab stated that she draw the patient's 2100 blood tests.). --21:26 Jay Briceño R.N. DISPOSITION / DISCHARGE 22:20 01/02/2017 Site #1 removed upon discharge. Catheter intact. Bandaid applied. --22:20 Lila Weiss Departure time: 22:21. Condition at departure: improved. No learning barriers present. Discharge instructions provided and reviewed with the patient. Patient verbalized understanding. Written instructions provided in Portuguese. No warning instructions, medication instructions, treatment instructions, referrals given to the patient or diet instructions. No activity restrictions, note given, follow up contact number given or stop smoking instructions. The patient was discharged by the nurse practitioner. He was discharged home and accompanied by spouse. He left the Emergency Department ambulatory and via private vehicle. Spouse driving. FALL RISK ASSESSMENT: Fall risk assessment completed. No fall risk identified. --22:21 Lila Weiss 22:19 01/02/17. BP: 133/86. HR: 73. RR: 16. O2 saturation: 98%. Temp: deferred. Pain level now: 0/10. --22:21 Lila Weiss Locked/Released at 01/03/2017 1:36 by Jay Briceño R.N.
--- NOTE | 2017-01-02 22:14 | ED ORDER SUMMARY ---
..... Patient: STEVE KAPLAN OrderSheet [facility] VisitID: [id number] [address] [place] [address] 36y, M Registration Date/Time: 01/02/2017 ORDER SHEET Weight: 89.8 kg (stated) Allergies: No Known Drug Allergy GENERAL ORDERS: Case Management Rn (Continuous) (18:50 01/02/2017 JSimbeck R.N. per protocol) (Ack 18:52 IJurca ER Tech1) (19:13 DDavis R.N.) Pulse oximeter (18:50 01/02/2017 JSimbeck R.N. per protocol) (Ack 18:52 IJurca ER Tech1) (19:13 DDavis R.N.) EKG - ER Stat (18:50 01/02/2017 JSimbeck R.N. per protocol) (Ack 18:52 IJurca ER Tech1) (19:09 RKaruga) Chest 1V Urgent (18:59 01/02/2017 HBivens A.R.N.P.) (Ack 19:01 IJurca ER Tech1) (19:13 DDavis R.N.) CBC w Diff Urgent (18:59 01/02/2017 HBivens A.R.N.P.) (Ack 19:01 IJurca ER Tech1) (19:13 DDavis R.N.) CMP Urgent (18:59 01/02/2017 HBivens A.R.N.P.) (Ack 19:01 IJurca ER Tech1) (19:13 DDavis R.N.) Troponin-I Urgent (18:59 01/02/2017 HBivens A.R.N.P.) (Ack 19:01 IJurca ER Tech1) (19:13 DDavis R.N.) CPK Urgent (18:59 01/02/2017 HBivens A.R.N.P.) (Ack 19:01 IJurca ER Tech1) (19:13 DDavis R.N.) Troponin-I Urgent (20:24 01/02/2017 HBivens A.R.N.P.) (Ack 20:25 CHagerty ER Refinery Operator Visbreaking) (21:25 DDavis R.N.) CPK Urgent (20:24 01/02/2017 HBivens A.R.N.P.) (Ack 20:25 CHagerty ER Refinery Operator Visbreaking) (21:25 DDavis R.N.) MEDICATION ORDERS: Aspirin PO 325 mg (Do not crush or chew, NOW) (18:59 01/02/2017 HBivens A.R.N.P.) (19:23 DDavis R.N.) NitroGLYCERIN SL 0.4 mg (x3 PRN Chest Pain) (18:59 01/02/2017 HBivens A.R.N.P.) (19:23 DDavis R.N.) IV FLUIDS: IV Saline Lock (18:59 01/02/2017 HBivens A.R.N.P.) (19:17 DDavis R.N.) ORDER SHEET NOTES: [Electronically signed by Renita LamR.N.P. (22:42 01/02/2017)] [Electronically signed by Jay Briceño R.N. (01:36 01/03/2017)] [Electronically locked/signed by Jay Briceño R.N. (01:36 01/03/2017)]
--- NOTE | 2017-01-02 22:14 | ED CLINICAL REPORT ---
Clinical Report - Physicians/Mid Levels [facility] [address] [place] [address] 01/02/2017 18:42 Patient: STEVE KAPLAN Time Seen: 18:55; initial patient contact, initial documentation, patient care assumed. Arrived- By private vehicle. Historian- patient. HISTORY OF PRESENT ILLNESS Chief Complaint: CHEST PAIN and DISCOMFORT. At its maximum, severity described as severe. When seen in the E.D., severity described as severe. Modifying factors. Not worsened by anything. Not relieved by anything. It is described as sharp and "pain" and stabbing and it is described as located in the left chest area and radiating to the left jaw and left shoulder. This started yesterday and is still present. It was abrupt in onset and has been constant. No nausea, vomiting or diaphoresis. He has had difficulty breathing. Similar symptoms previously: None. Recent medical care: Not recently seen/assessed. REVIEW OF SYSTEMS No cough. All systems otherwise negative, except as recorded above. PAST HISTORY See nurses notes. PROBLEMS: Anxiety Reaction. Hypertension. --18:49 Elfego Jung R.N. SOCIAL HISTORY Never smoker. No alcohol use or drug use. No recent travel. Is a local resident. He lives with spouse. FAMILY HISTORY History of heart disease in first-degree relative (father) and grandparent. ADDITIONAL NOTES The nursing notes have been reviewed with agreement regarding the chief complaint, HPI, ROS, PMH and patient medications and allergies. PHYSICAL EXAM Vital Signs: 01/02/2017 18:49 BP: 152/92. HR: 84. RR: 20. O2 saturation: 100%. Temp: 98 F. Have been reviewed as normal and appear to be correct. Appearance: Alert. Oriented X3. No acute distress. Eyes: Pupils equal, round and reactive to light. Eyes normal inspection. Neck: Normal inspection. Neck supple. CVS: Normal heart rate and rhythm. Heart sounds normal. Pulses normal. Respiratory: No respiratory distress. Breath sounds normal. Chest nontender. Abdomen: Soft and nontender. Back: Normal external inspection. Skin: Skin warm and dry. Normal skin color. No rash. Normal skin turgor. Extremities: Extremities exhibit normal ROM. No lower extremity edema. Neuro: Oriented X 3. No motor deficit. No sensory deficit. LABS, X-RAYS, AND EKG EKG: EKG time: (1906). No acute process. No acute ischemia. Normal EKG. Rate: 70. Normal EKG. The study has been interpreted contemporaneously by me (and Dr Lin). The EKG appears to be a good tracing. Interpretation time: 1908. Chest X-ray: Normal Chest X-Ray. (IMPRESSION: 1. Negative chest. Electronically Final signed by:Wayne Cadena MD 01/02/2017 8:40:55 PM). The X-rays were interpreted by the radiologist and contemporaneously by me. Interpretation time: 20:55. Laboratory Tests: CBC w Diff: (CEDRICK: 01/02/2017 19:05) ( [facility] 01/02/2017 19:45) Final results Test Result Flag Units (Reference) WHITE BLOOD COUNT 8.7 K/uL (4.5-11.5) RED BLOOD COUNT 4.81 M/uL (4.50-5.90) HEMOGLOBIN 14.4 gm/dL (13.5-17.5) HEMATOCRIT 42.1 % (41.0-53.0) MEAN CELL VOLUME 88 fL (80-100) MEAN CORPUSCULAR HGB 30 pg (26-34) MEAN CORPUSCULAR HGB CONC 34 g/dL (31-37) RED CELL DISTRIBUTION WIDTH 12.9 % (11.6-14.8) PLATELET COUNT 240 K/uL (150-400) NEUTROPHIL % 50.4 % (50-75) LYMPH % 38.3 % (25-40) MONO % 9.4 % (3-14) EOSINOPHIL % 1.6 % (0-4) BASOPHIL % 0.3 % (0-2) CPK: (CEDRICK: 01/02/2017 21:09) ( [facility] 01/02/2017 21:49) Final results Test Result Flag Units (Reference) CPK 176 U/L (24-260) TROPONIN I <0.05 L ng/mL (0.00-1.5) TROPONIN REFERENCE RANGE:<0.1 NEGATIVE0.1-1.5 INDETERMINANT>1.5 POSITIVE CMP: (CEDRICK: 01/02/2017 19:05) ( MsgRcvd 01/02/2017 20:02) Final results Test Result Flag Units (Reference) GLUCOSE 109 mg/dL (70-110) BUN 19 H mg/dL (7-18) CREATININE 1.0 mg/dL (0.6-1.3) Estimated GFR >60 mL/min Estimated GFR- >60 mL/min Note: Persistent reduction over 3 months in eGFR<60 mL/min/1.73 m2 defines CKD. Patients with eGFR values>=60 mL/min/1.73 m2 may also have CKD if evidence ofpersistent proteinuria. Additional information may be foundat www.kidney.org. SODIUM 141 mmol/L (136-145) POTASSIUM 3.4 L mmol/L (3.5-5.1) CHLORIDE 104 mmol/L (98-107) CARBON DIOXIDE 23 mmol/L (21-32) CALCIUM 8.7 mg/dL (8.5-10.1) TOTAL PROTEIN 7.9 g/dL (6.4-8.2) ALBUMIN 4.2 g/dL (3.3-5.0) BILIRUBIN, TOTAL 0.4 mg/dL (0.0-1.0) ALKALINE PHOSPHATASE 64 U/L (46-116) AST (SGOT) 19 U/L (15-37) ALT (SGPT) 47 U/L (12-78) CPK 195 U/L (24-260) TROPONIN I <0.05 L ng/mL (0.00-1.5) TROPONIN REFERENCE RANGE:<0.1 NEGATIVE0.1-1.5 INDETERMINANT>1.5 POSITIVE . PROGRESS AND PROCEDURES Course of Care: 01/02/2017 21:40 BP: 133/76. HR: 74. RR: 22. O2 saturation: 97%. Pain level now: 0/10. Patient counseled in person regarding the patient's stable condition, test results and diagnosis. 22:00. Differential Diagnosis: I considered muscle strain, costochondritis, myositis, pleurisy, myocardial infarction, intermediate coronary syndrome, unstable angina, angina, aortic dissection, mitral valve prolapse, pericarditis, pulmonary embolism, pneumonia, lung cancer, gastroesophageal reflux disease, esophagitis and esophageal spasm as a possible cause of chest pain in this patient. This is a partial list of diagnoses considered. (anxiety, substance abuse). Above considerations are based on history, physical exam, reassessment, laboratory data, X-Ray data and EKG. Differential diagnosis was discussed with patient and patient's spouse. Disposition: Discharged home in good and improved condition (22:14). Condition: good and stable. CLINICAL IMPRESSION Precordial chest pain characterized as "discomfort" .12 lead EKG performed. INSTRUCTIONS Warnings: GENERAL WARNINGS: Return or contact your physician immediately if your condition worsens or changes unexpectedly, if not improving as expected, or if other problems arise. SPECIFICALLY, return if you develop chest, neck, jaw, shoulder, arm, or back pain, difficulty breathing, a fluttering sensation in your chest, lightheadedness, fainting, excessive fatigue, or sudden sweating. Follow-up: Follow up with your doctor in about two days even if well. Call for an appointment. Summary of care provided to patient and family. Blood pressure screening was not performed during this visit because the patient has an active diagnosis of hypertension and blood pressure screening was precluded by clinical urgency. Understanding of the discharge instructions verbalized by patient. (Electronically signed by Renita Lam A.R.N.P. 01/02/2017 22:42)
--- NOTE | 2017-01-03 01:36 | ED DISCHARGE INSTRUCTIONS ---
Patient: STEVE KAPLAN General Instructions [facility] VisitID: [id number] [place] [address] 36y, M Registration Date/Time: 01/02/2017 Precordial chest pain characterized as "discomfort" .12 lead EKG performed. INSTRUCTIONS Warnings: GENERAL WARNINGS: Return or contact your physician immediately if your condition worsens or changes unexpectedly, if not improving as expected, or if other problems arise. SPECIFICALLY, return if you develop chest, neck, jaw, shoulder, arm, or back pain, difficulty breathing, a fluttering sensation in your chest, lightheadedness, fainting, excessive fatigue, or sudden sweating. Follow-up: Follow up with your doctor in about two days even if well. Call for an appointment. Summary of care provided to patient and family. Blood pressure screening was not performed during this visit because the patient has an active diagnosis of hypertension and blood pressure screening was precluded by clinical urgency. Understanding of the discharge instructions verbalized by patient. ADDITIONAL INFORMATION Chest Pain, Uncertain Cause Chest pain can happen for a number of reasons. Sometimes the cause can not be determined. If yourcondition does not seem serious, and your pain does not appear to be coming from your heart, your doctor may recommend watching it closely. Sometimes the signs of a serious problem take more time to appear. Therefore, watch for the warning signs listed below. Home care After your visit, follow these recommendations: Rest today and avoid strenuous activity. Take any prescribed medicine as directed. Follow-up care Follow up with your doctor or this facility as instructed or if you do not start to feel better within 24 hours. Call 911 Get immediate medical attention if any of the following occur: A change in the type of pain: if it feels different, becomes more severe, lasts longer, or begins to spread into your shoulder, arm, neck, jaw or back Shortness of breath or increased pain with breathing Weakness, dizziness, or fainting Rapid heart beat Get prompt medical attention Call your doctor right away if any of the following occur: Cough with dark colored sputum (phlegm) or blood Fever of 100.4F(38C) or higher, or as directed by your health care provider Swelling, pain or redness in one leg Chest Wall Pain: Costochondritis The chest pain that you have had today is caused by Costochondritis. This condition is due to an inflammation of the cartilage joining the ribs to the breastbone. It is not caused by heart or lung problems. Although the exact cause for costochondritis is not known, it often occurs during times of emotional stress. It can be painful, but it is not dangerous. It usually disappears within one to two weeks, but may recur. Rarely, a more serious condition may cause symptoms similar to costochondritis; therefore, watch for the warning signs listed below. Home Care: If you feel that emotional stress is a cause of your condition, try to identify sources of that stress. It may not be obvious! Learn ways to deal with the stress in your life such as regular exercise, muscle relaxation, meditation, or simply taking time out for yourself. For more information about this, consult your doctor or go to a local bookstore and review books and tapes available on the subject of stress reduction. You may use acetaminophen (Tylenol) or ibuprofen (Motrin, Advil) to control pain, unless another pain medicine was prescribed. [ NOTE: If you have liver disease or ever had a stomach ulcer, talk with your doctor before using these medicines.] The use of heat (hot wet compress or heating pad) with or without local analgesic creams (Deep Heat Rub, Jose F Crawford) will be helpful to reduce pain. Follow Up with your doctor as directed or sooner if you do not start to improve within the next two days. Get Prompt Medical Attention if any of the following occur: A change in the type of pain: if it feels different, becomes more severe, lasts longer, or spreads into your shoulder, arm, neck, jaw or back Shortness of breath or increased pain with breathing Weakness, dizziness, or fainting Cough with dark colored sputum (phlegm) or blood Abdominal pain Dark red or black stools Fever of 100.4F (38C) or higher, or as directed by your healthcare provider Chest Pain, Noncardiac Based on your visit today, the exact cause of your chest pain is not certain. Your condition does not seem serious and your pain does not appear to be coming from your heart. However, sometimes the signs of a serious problem take more time to appear. Therefore, please watch for the warning signs listed below. Home Care: Rest today and avoid strenuous activity. Take any prescribed medicine as directed. Follow Up with your doctor or this facility as instructed or if you do not start to feel better within 24 hours. Get Prompt Medical Attention if any of the following occur: A change in the type of pain: if it feels different, becomes more severe, lasts longer, or begins to spread into your shoulder, arm, neck, jaw or back Shortness of breath or increased pain with breathing Cough with dark colored sputum (phlegm) or blood Weakness, dizziness, or fainting Fever of 100.4F (38C) or higher, or as directed by your healthcare provider Swelling, pain or redness in one leg You have been given the following additional information: Chest Pain, Uncertain Cause Chest Wall Pain, Costochondritis Chest Pain, Noncardiac (Electronically signed by Renita Lam A.R.NAlishaPAlisha 01/02/2017 22:42)
--- NOTE | 2017-01-03 01:36 | ED MAR SUMMARY ---
..... Medication Administration Record [facility] [address] [place] [address] Patient: STEVE KAPLAN Visit ID: [id number] 36y, M Weight: 89.8 kg Height/Length: 66 in BMI: 32 ALLERGIES: No Known Drug Allergy Given 19:01/02/2017 Jay Briceño R.N. Medication Administered: ASPIRIN [PO], Dose: 325 mg Tablets PO. Medication Ordered: Aspirin PO 325 mg (Do not crush or chew, NOW). Given 19:01/02/2017 Jay Briceño R.N. Medication Administered: NITROGLYCERIN [SL], Dose: 0.4 mg Tablets SL. Medication Ordered: NitroGLYCERIN SL 0.4 mg (x3 PRN Chest Pain). Given 19:30 01/02/2017 Jay Briceño R.NAlisha Medication Administered: NITROGLYCERIN [SL], Dose: 0.4 mg Tablets SL. Medication Ordered: NitroGLYCERIN SL 0.4 mg (x3 PRN Chest Pain).
--- NOTE | 2017-01-03 01:36 | ED MED RECONCILIATION SUMMARY ---
Patient: STEVE KAPLAN Medication Reconciliation Report [facility] VisitID: [id number] [address] [place] [address] 36y, M Registration Date/Time: 01/02/2017 Weight: 89.8 kg Height/Length: 66 in. BMI: 32.0 ALLERGIES: No Known Drug Allergy The patient's Home Medications are listed below: THE FOLLOWING MEDICATIONS NEED TO BE RECONCILED: Atenolol Oral (50 mg) 1 tablet, daily HydrOXYzine HCl Oral (25 mg) 1 - 2, daily, anxiety Xanax Oral, stopped The source(s) of the original Home Medication information: Not obtained. The following Medications were given to the patient in the Emergency Department: Aspirin [PO] PO 325 mg, administered: 01/02/2017 7:19:00 PM Nitroglycerin [SL] SL 0.4 mg, administered: 01/02/2017 7:21:00 PM Nitroglycerin [SL] SL 0.4 mg, administered: 01/02/2017 7:30:00 PM The following Medications were prescribed to the patient: None.
--- NOTE | 2017-01-03 01:36 | ED MED RECONCILIATION SUMMARY ---
Patient: STEVE KAPLAN Medication Reconciliation Report [facility] VisitID: [id number] [address] [place] [address] 36y, M Registration Date/Time: 01/02/2017 Weight: 89.8 kg Height/Length: 66 in. BMI: 32.0 ALLERGIES: No Known Drug Allergy The patient's Home Medications are listed below: THE FOLLOWING MEDICATIONS NEED TO BE RECONCILED: Atenolol Oral (50 mg) 1 tablet, daily HydrOXYzine HCl Oral (25 mg) 1 - 2, daily, anxiety Xanax Oral, stopped The source(s) of the original Home Medication information: Not obtained. The following Medications were given to the patient in the Emergency Department: Aspirin [PO] PO 325 mg, administered: 01/02/2017 7:19:00 PM Nitroglycerin [SL] SL 0.4 mg, administered: 01/02/2017 7:21:00 PM Nitroglycerin [SL] SL 0.4 mg, administered: 01/02/2017 7:30:00 PM The following Medications were prescribed to the patient: None.
--- NOTE | 2017-01-03 01:36 | ED MAR SUMMARY ---
..... Medication Administration Record [facility] [address] [place] [address] Patient: STEVE KAPLAN Visit ID: [id number] 36y, M Weight: 89.8 kg Height/Length: 66 in BMI: 32 ALLERGIES: No Known Drug Allergy Given 19:01/02/2017 Jay Briceño R.N. Medication Administered: ASPIRIN [PO], Dose: 325 mg Tablets PO. Medication Ordered: Aspirin PO 325 mg (Do not crush or chew, NOW). Given 19:01/02/2017 Jay Briceño R.N. Medication Administered: NITROGLYCERIN [SL], Dose: 0.4 mg Tablets SL. Medication Ordered: NitroGLYCERIN SL 0.4 mg (x3 PRN Chest Pain). Given 19:30 01/02/2017 Jay Briceño R.NAlisha Medication Administered: NITROGLYCERIN [SL], Dose: 0.4 mg Tablets SL. Medication Ordered: NitroGLYCERIN SL 0.4 mg (x3 PRN Chest Pain).
== END 2017-01-02 22:15 | disposition home or self-care (01) ==
LOC: ED SRH 18:42
DX: R07.2 Precordial pain (principal); I10 Essential (primary) hypertension; Z79.899 Other long term (current) drug therapy
CPT/HCPCS: 90100; 90616; 92610; 95059